=== PATIENT | female | born 1990 | race Caucasian/White ===

== ENCOUNTER 2020-03-29 11:35 | Emergency (ER) | payer MEDICAID ==
[~2020-03-29] VITALS: Ht 162.6 cm; Wt 112.9 kg
[2020-03-29 11:55] VITALS: Ht 162.6 cm; Wt 112.9 kg
[2020-03-29 13:05] LABS: BASOPHIL % 0.6 % (0-2); PLATELET COUNT 276 x10^3mcL (130-400)
[2020-03-29 13:11] LABS: RED CELL DISTRIBUTION WIDTH 16.5 % (11.5-14.5)
[2020-03-29 15:08] VITALS: BP 114/68
== END 2020-03-29 15:08 | disposition home or self-care (01) ==
LOC: ED 11:35
PROVIDERS: Emergency Medicine
DX: O20.0 Threatened abortion (principal)
CPT/HCPCS: Q0092